=== PATIENT | male | born 1975 | race Caucasian/White ===

== ENCOUNTER 2018-02-11 03:19 | Emergency (ER) | payer OTHER ==
[~2018-02-11] VITALS: Ht 167.6 cm; Wt 64.9 kg
--- NOTE | 2018-02-11 03:28 | NUR ---
PT [id number] FROM [facility] COMPLAINING OF AUDITORY HALLUCINATIONS. PT STATES "I FEEL LIKE EVERYONE IS MAD AT ME BECAUSE I RELAPSED." PT STATES HE DRANK AND TOOK METH 1 DAY AGO. PT DENIES SI AND HI,BUT STATES "THEY'RE OUT TO GET ME, I'LL NEED TO DEFEND MYSELF". PT TO ER BED 06. WILL CONTINUE TO MONITOR.
--- NOTE | 2018-02-11 03:30 | NUR ---
URINE COLLECTED. CALLED [facility]
[2018-02-11 03:52] LABS: BASOPHILS % (AUTO) 0.2 % (0.0-2.0); EOSINOPHILS % (AUTO) 0.1 % (0.0-6.0); HEMATOCRIT 43 % (39-51); HEMOGLOBIN 14.6 g/dL (13.5-17.5); LYMPHOCYTES # (AUTO) 1.1 /CMM (0.8-4.8); LYMPHOCYTES % (AUTO) 12.6 % (20.0-44.0); MEAN CORPUSCULAR HGB CONC 34 g/dl (31.0-36.0); MEAN CORPUSCULAR VOLUME 94 fL (80-96); MONOCYTES # (AUTO) 0.9 /CMM (0.1-1.30); MONOCYTES % (AUTO) 10.3 % (2.0-12.0); NEUTROPHILS # (AUTO) 6.5 /CMM (1.8-8.9); NEUTROPHILS % (AUTO) 76.8 % (43.0-81.0); PLATELET COUNT (AUTO) 220 /CMM (150-450); RDW COEFFICIENT OF VARIATION 12.8 (11.5-15.0); RED BLOOD CELL COUNT(AUTO) 4.55 MIL/uL (4.5-6.0); WHITE BLOOD COUNT (AUTO) 8.4 K/uL (4.3-11.0)
[2018-02-11 04:14] LABS: CALCIUM, SERUM 8.7 mg/dL (8.5-10.1); CARBON DIOXIDE 30 mmol/L (21-32); CHLORIDE 99 mmol/L (98-107); CREATININE 0.9 mg/dL (0.6-1.3); GLUCOSE 296 mg/dL (74-106); POTASSIUM 3.9 mmol/L (3.5-5.1); SODIUM SERUM 140 mmol/L (136-145); UREA NITROGEN, BLOOD 10 mg/dL (7-18)
[2018-02-11 04:20] LABS: ALANINE AMINOTRANSFERASE 47 U/L (12-78); ALBUMIN 3.7 g/dL (3.4-5.0); ALKALINE PHOSPHATASE 93 U/L (46-116); ASPARTATE AMINOTRANSFERASE 19 U/L (15-37); BILIRUBIN,DIRECT 0.1 mg/dL (0.0-0.2); BILIRUBIN,TOTAL 0.4 mg/dL (0.2-1.0); SALICYLATE 3.1 mg/dL (2.8-20.0); TOTAL PROTEIN, SERUM 8.2 g/dL (6.4-8.2)
[2018-02-11 04:27] LABS: ACETAMINOPHEN 0 ug/ml (10-30); ALCOHOL, BLOOD < 3 mg/dL (0-0)
--- NOTE | 2018-02-11 07:22 | NUR ---
PT IN BED USING CELL PHONE ALERT ORIENTED STATES HE WANTS [facility] FEELING ANXIOUS MD LYNN MADE AWRE PTMEDICALLY CLEARED PENDING TRANSITION TO [facility] WILL CONTINUE TO MONITOR.
[2018-02-11] MEDS ORDERED: LORAZEPAM 1 MG TABLET ONE (07:26)
[2018-02-11] MEDS ORDERED: LORAZEPAM 1 MG TABLET PO ONE (07:30)
[2018-02-11 08:37] LABS: APPEARANCE,URINE CLEAR (CLEAR); BILIRUBIN,URINE NEGATIVE (NEGATIVE); BLOOD, URINE 1+ Ery/uL (NEGATIVE); COLOR,URINE YELLOW (YELLOW); KETONES,URINE 1+ (NEGATIVE); LEUKOCYTE ESTERASE ,URINE NEGATIVE (NEGATIVE); NITRITE, URINE NEGATIVE (NEGATIVE); PROTEIN,URINE 1+ mg/dl (NEGATIVE); UGLUCOSE 3+ mg/dL (NEGATIVE); UROBILINOGEN,URINE 0.2 EU/dL (0.2)
[2018-02-11 08:41] LABS: BACTERIA,URINE Few /HPF (None Seen); SQUAMOUS EPITHELIAL CELL,UR Rare /HPF (None Seen); YEAST,URINE Few /HPF (None Seen)
--- NOTE | 2018-02-11 09:25 | NUR ---
CALLED SO/CHARLES RYAN GAVE REPORT TO Rob
[2018-02-11] MEDS: METFORMIN XR 500 MG TAB.SR.24H PO SCH ×2 (09:30→10:44)
[2018-02-11] MEDS ORDERED: GLIPIZIDE XL 5 MG TAB.OSM.24 PO ONE (09:30)
[2018-02-11] MEDS ORDERED: INSULIN REGULAR, HUMAN 100 UNIT/ML 10 ML VIAL ONE ×4 (09:40→10:44)
[2018-02-11] MEDS ORDERED: METFORMIN XR 500 MG TAB.SR.24H PO ONE (09:40)
[2018-02-11] MEDS: INSULIN REGULAR, HUMAN 100 UNIT/ML 10 ML VIAL SQ ONE ×2 (09:49→10:45)
--- NOTE | 2018-02-11 10:41 | NUR ---
KAREN HERE TO PICK PT UP CALLED JASMEET RYAN WANTS BLOOD SUGAR LESS 250 CURRENTLY MR AWARE.
--- NOTE | 2018-02-11 13:20 | NUR ---
CALLED SECOND TIME TO JASMEET RYAN POCT BLOOD SUGAR 248
--- NOTE | 2018-02-11 13:44 | NUR ---
CALLED [facility] TO [facility]ACTIVATE TRIP#[id number] ETA 45 MINUTES
[2018-02-11 14:42] VITALS: BP 158/93
--- NOTE | 2018-02-11 14:42 | NUR ---
PT WALKED OUT OF EMERGENCY ROOM WITH GIRL FRIEND AROUND 1410 ASKED IF HE WAS COIMING BACK STATED YES [facility]SP[facility] TO [facility] 20 MINUTES AGO PT NOT AVAILABLE PT JENNIFER
== END 2018-02-11 14:44 | disposition left against medical advice (07) ==
LOC: ER 03:21 → EDBD 03:21 → ER 14:44
DX: R45.851 Suicidal ideations (principal); F15.10 Other stimulant abuse, uncomplicated; F10.20 Alcohol dependence, uncomplicated; F31.9 Bipolar disorder, unspecified; E11.65 Type 2 diabetes mellitus with hyperglycemia; I10 Essential (primary) hypertension; F20.9 Schizophrenia, unspecified; F17.200 Nicotine dependence, unspecified, uncomplicated; Y90.0 Blood alcohol level of less than 20 mg/100 ml; Z98.890 Other specified postprocedural states
CPT/HCPCS: 36415; 80048; 80076; 80305; 80329; 81001; 82962 ×3; 85025; 96372; 99285; A4606; G0480 ×2; J1815 ×4; Z7610; 81000-TC